=== PATIENT | female | born 1990 ===

== ENCOUNTER 2024-08-31 03:46 | Emergency (ER) | payer SELFPAY ==
[2024-08-31 04:03] LABS: BASOPHILS PERCENT AUTO 0.4 % (0.0-1.0); HEMATOCRIT 40.1 % (37.0-47.0); HEMOGLOBIN 13.1 g/dL (12.0-16.0); LYMPHOCYTES PERCENT AUTO 46.4 % (20.5-50.1); MEAN CORPUSCULAR HEMOGLOBIN 32.4 pg (27.0-34.0); MEAN CORPUSCULAR HGB CONC 32.7 g/dL (33.0-35.0); MEAN CORPUSCULAR VOLUME 99.3 fL (80-100); MONOCYTES PERCENT AUTO 7.5 % (2-8); NEUTROPHILS PERCENT AUTO 43.7 % (42.2-75.2); PLATELET COUNT,PLT 179 10^3/uL (150-450); RED BLOOD CELL COUNT 4.04 10^6/uL (4.2-5.4); WHITE BLOOD CELL COUNT,WBC 5.5 10^3/uL (5.0-10.0)
[2024-08-31] MEDS: MVI, Adult with Vitamin K 10 ML, Folic Acid 1 MG, Thiamine 100 MG in Lactated Ringers 1... IV ONE (04:12)
[2024-08-31 04:22] LABS: INR 1.1 (0.9-1.2); PROTHROMBIN TIME 10.9 SEC (9.0-12.0)
[2024-08-31 04:26] LABS: ALANINE AMINOTRANSFERASE,ALT 45 U/L (14-59); ALBUMIN 3.5 g/dL (3.4-5.0); ALKALINE PHOSPHATASE 116 U/L (46-116); ANION GAP 13.9 mEq/L (7-13); ASPARTATE AMNIOTRANSFERASE,AST 47 U/L (15-37); BILIRUBIN TOTAL 0.9 mg/dL (0.2-1.0); BLOOD UREA NITROGEN,BUN 9 mg/dL (7-18); BUN/CREATININE RATIO 16.4 (No establ ref range); CALCIUM 8.4 mg/dL (8.5-10.1); CARBON DIOXIDE,CO2 29 mmol/L (21-32); CHLORIDE,CL 110 mmol/L (98-107); CREATINE KINASE,CK 181 U/L (16-191); CREATININE 0.55 mg/dL (0.55-1.02); ESTIMATED GFR 122 mL/min (>=60); ETHANOL BLOOD MEDICAL 280 mg/dL (0); GLUCOSE RANDOM 95 mg/dL (70-99); POTASSIUM,K 4.9 mmol/L (3.5-5.1); PROTEIN TOTAL,TP 7.1 g/dL (6.4-8.2); SODIUM,NA 148 mmol/L (136-145)
[2024-08-31] MEDS ORDERED: Sodium Chloride 0.9% 1,000 ML IV ONE (04:37)
[2024-08-31] MEDS: Ondansetron 4 MG/2 ML SDV IVPUSH ONE (04:48)
[2024-08-31] MEDS: Ketorolac 30 MG/ML SDV IVPUSH ONE (04:50)
[2024-08-31] MEDS: Morphine 2 MG/ML SYRINGE IVPUSH ONE (04:53)
== END 2024-08-31 06:32 | disposition home or self-care (01) ==
LOC: DL.ED 03:46
DX: T33.831A Superficial frostbite of right toe(s), initial encounter (principal); F10.129 Alcohol abuse with intoxication, unspecified; F17.210 Nicotine dependence, cigarettes, uncomplicated; Y90.8 Blood alcohol level of 240 mg/100 ml or more; W57.XXXA Bitten or stung by nonvenomous insect and other nonvenomous arthropods, initial encounter
CPT/HCPCS: 36415; 73630; 80053; 80307; 82550; 83735; 85025; 85610; 93005; 96365; 96375; 99284; J1885; J2270; J2405; J3411; J7120; J3490